=== PATIENT | female | born 1945 | race Caucasian/White ===

== ENCOUNTER 2016-12-17 19:00 | Inpatient (IN) | payer OTHER, MEDICARE ==
--- NOTE | ~2016-12-17 | DS ---
Discharge Summary [place] [id number] [facility] [place]. [address] NAME: RG PETTY : 43 STATUS : DIS IN PAT#: [id number] AGE: 71 ADM/REG DATE : 12/17/16 MR#: [id number] REPORT SERV DATE: 12/25/16 DICTATED BY: VÍCTOR STAHL DATE: 12/24/16 REPORT STATUS : Draft TRANSCRIBED BY: KIRA DATE: 12/24/16 ADMISSION DATE: 12/17/2016 DISCHARGE DATE: 12/24/2016 DIAGNOSES: 1. Sepsis. 2. Extended-spectrum beta-lactamases bacteremia. 3. Extended-spectrum beta-lactamases urinary tract infection. 4. Metabolic encephalopathy resolved secondary to above. 5. Chronic autoimmune hepatitis. 6. Oral thrush and skin candidiasis. 7. Debility. 8. Arthritis. CONSULTANTS: Test Engine Evaluator, Dr. Jairo Mistry M.D. FOLLOWUP: The patient is to follow up with Dr. Jovi Mistry in two weeks and to follow with the primary care physician in one to two weeks after rehab. The patient is to have a CMP to follow up with the LFTs while at rehab within seven days per Dr. Mistry's recommendations. DISCHARGE MEDICATIONS: Bumex 1 mg p.o. daily p.r.n., Voltaren gel topically q.6 hours to left shoulder p.r.n., level 2 subcutaneous sliding insulin, heparin 5000 units subcu q.12 hours for two weeks, melatonin 9 mg p.o. at bedtime, Merrem 500 mg IV q.8 hours for 6 days, Nystatin topical powder under breast four times a day for 2 weeks, Nystatin suspension 5 mL p.o. q.6 hours for 5 days, Nexium 40 mg p.o. q.a.m., Florastor 2 caps p.o. b.i.d., Zoloft 25 mg p.o. daily, thiamine 100 mg p.o. daily, ursodiol 500 mg p.o. b.i.d., prednisone 10 mg p.o. q.a.m., Imodium 2 mg p.o. q.6 hours p.r.n., albuterol neb q.4 hours p.r.n., CoQ10 of 100 mg p.o. daily, and vitamin E 400 units p.o. daily. HOSPITAL COURSE: This is a 71 years old female, recently diagnosed with autoimmune hepatitis, being followed by Dr. Jairo Mistry, who is currently on prednisone and recently started on CellCept. The patient was recently also discharged from the hospital in 10/2016, and for that diagnosis, she presented from Dr. Jairo Mistry's office, the deposit refund clerk, after being found to have an elevated white count of 28.5 and encephalopathy. Also the patient was recently started on Tamiflu as an outpatient for complaint of subjective fever, chills, and suspected influenza, although unsure if the influenza swab was ever checked at that time. She was admitted to the Hospitalist Service for sepsis and urinary tract infection and encephalopathy and initially seen by Dr. Hussain Lin with a consultation to Dr. Jairo Mistry, the deposit refund clerk, and the patient had a CT of the abdomen and pelvis without contrast that revealed a small volume of ascites and a small left pleural effusion with appearance of the liver, spleen, kidneys, pancreas, adrenal glands were within normal limits, and the patient did not require paracentesis due to not being enough ascites for paracentesis. She did initially have some abdominal discomfort which was more so suprapubic but resolved after initiation of antibiotics within 24 hours. Her liver numbers were checked and actually had some improvement with the T-bilirubin from 5.1 to 3.6, alkaline phosphatase had improved from 180-147 and ALT remained normal from 12-13. AST remained Discharge Summary [address] [address] NAME: RG PETTY : 43 STATUS : DIS IN PAT#: [id number] AGE: 71 ADM/REG DATE : 12/17/16 MR#: [id number] REPORT SERV DATE: 12/25/16 DICTATED BY: VÍCTOR STAHL DATE: 12/24/16 REPORT STATUS : Draft TRANSCRIBED BY: KIRA DATE: 12/24/16 normal from 14-30 but improvement overall of LFTs. INR was noted to be 1.5. The patient's prednisone was continued. Dr. Jairo Mistry wanted to initiate CellCept. However, the patient was found to have some ESBL bacteremia in all blood cultures as well as in the urine. Therefore, CellCept had to be withheld due to the patient's acute infection. Overall, clinical status improved dramatically with appropriate initiation with IV Merrem. Abdominal discomfort resolved at the time of discharge. The patient did not have any abdominal distention and was eating and drinking well. Also a curbside consultation and was sent to Infectious Disease specialist, Dr. Александр López, to discuss the length of the patient's antibiotic with recommendation of a full course of 10 days. Also was discussed about the safest time to initiate CellCept and was recommended to wait three weeks before initiating CellCept for the patient's autoimmune hepatitis due to high risk of worsening infection or recurrence of infection in this immunocompromised patient. The patient clinically was improved with improving LFTs at the time of discharge. This also was discussed with Dr. Jairo Mistry as well as the patient and family. Dr. Mistry recommended for the patient's LFTs to be checked in a week after discharge at rehab and to follow up with him as well as an outpatient in a couple of weeks. Also, important to note, the patient had an echocardiogram during her hospital stay that revealed an ejection fraction of 55% to 60% with mild diastolic dysfunction and no evidence of vegetation seen. The patient was discharged to [facility] and the PICC line is to be removed after completion of the patient's IV antibiotics. This discharge required greater than 35 minutes. ARIELLA/NIKIL Víctor Stahl M.D. / [id number] CC: Mai Ayers M.D.
--- NOTE | ~2016-12-17 | HP ---
History And Physical [place] [address] [facility] [place]. [address] NAME: RG PETTY : 43 STATUS : ADM IN PAT#: [id number] AGE: 71 ADM/REG DATE : 12/17/16 MR#: [id number] REPORT SERV DATE: 12/18/16 DICTATED BY: LAURA DUNCAN DATE: 12/17/16 REPORT STATUS : Draft TRANSCRIBED BY: MODL DATE: 12/17/16 DATE OF ADMISSION: 12/17/2016 REASON FOR ADMISSION: Elevated white count from Dr. Mistry's office. ZONING ENGINEER: Jairo Mistry M.D. HISTORY OF PRESENT ILLNESS: This is an unfortunate 71-year-old female. She had a recent liver biopsy that had shown fulminant acute hepatitis and massive hepatic necrosis. Given the elevated SUNNY titer, Pathology was leaning more toward autoimmune hepatitis plus or minus drug-induced hepatitis. The patient was recently discharged in late October to follow with Dr. Mistry on prednisone. The patient recently was kept on CellCept 500 p.o. b.i.d., reduced her prednisone from 20 a day to 10 a day. Ever since then, the patient has been increasingly more lethargic, true fever of 102, positive chills, positive nausea. No vomiting. Some occasional diarrhea and some mild pleuritic chest pain that does seem to reproduce upon musculoskeletal palpation, substernal and left sternal border. The patient has had some mild shortness of breath recently with shortness of breath and fevers and chills. The patient was placed on Tamiflu which seems to have been started on the . The patient felt minimally better since then. Apparently influenza was possibly not checked, I am not sure at that time per family. The patient came to see Dr. Mistry, white count was 28.5, requested admission here. The patient has increased abdominal distention, increased lower extremity swelling, some mild confusion, but she is A and O x4/4. The patient has not slept in quite a while. PAST MEDICAL HISTORY/PAST SURGICAL HISTORY: See above including cholecystectomy, bilateral knee surgery, and left breast lumpectomy. Additional history of gastric polyps, left breast cancer in 1999, status post surgical resection and radiation, and GERD. ALLERGIES: NO KNOWN DRUG ALLERGIES. SOCIAL HISTORY: Does not drink, do drugs, or do alcohol, nor has ever. , lives with , two children. Family does seem to be in the police force at [facility]. REVIEW OF SYSTEMS: Done, see HPI. Otherwise, negative. HOME MEDICATIONS: See MAR, continue what is relevant. OBJECTIVE: VITAL SIGN: 133/74, 98.2 temp, 106 pulse, 16 respirations, and 96% on room air. GENERAL: In no acute distress. HEENT: Some mild scleral icterus. Otherwise PERRLA. CARDIOVASCULAR: Regular rate and rhythm. No murmur. History And Physical [address] [address] NAME: RG PETTY : 43 STATUS : ADM IN PAT#: [id number] AGE: 71 ADM/REG DATE : 12/17/16 MR#: [id number] REPORT SERV DATE: 12/18/16 DICTATED BY: LAURA DUNCAN DATE: 12/17/16 REPORT STATUS : Draft TRANSCRIBED BY: MODL DATE: 12/17/16 RESPIRATORY: Bibasilar crackles, decreased breath sounds. Otherwise clear to auscultation. ABDOMEN: Does seem to be distended, some mild tenderness to palpation, more in the hypogastric region. No rebound tenderness. No peritoneal signs. EXTREMITIES: About 1+ pitting edema bilaterally. NEUROLOGIC: A and O x4/4 which seems a bit slow. Otherwise, she is GCS 15. PSYCHIATRIC: Unable to assess given neuro status is a bit slow. LABORATORY DATA: White count 28.5; hemoglobin 14.6; 119,000 platelets; 2.9 potassium; 29 bicarb; and 1.58 creatinine. BUN 30, 34 sugar, alkaline phosphatase 172, total bilirubin 4.7 and direct of which is 3.7, albumin 1.6. Urinalysis, 56 white blood cells, positive leukocyte esterase, troponins negative. ASSESSMENT: 1. Sepsis due to urinary tract infection with likely acute toxic encephalopathy. 2. Toxic encephalopathy. 3. Progressive fulminant liver disease, need to get an INR regarding the MELD. 4. Acute kidney injury versus chronic kidney disease. PLAN: We will go ahead and admit this patient, panculture, IV vancomycin and Zosyn given recent hospitalization in the last three months. Asked for Dr. Jairo Mistry in consultation regarding the MELD. Certainly needs to be resuscitated from a renal reperfusion standpoint with a D5 LR at 80. Get an ammonia level to see if this is contributing to any encephalopathy. If it is elevated, place on lactulose. Continue the prednisone, this cannot be quit cold turkey given adrenal insufficiency risk. Get CT of abdomen and pelvis without. If indeed does have [id number] ascites, will get abdominal paracentesis, will not draw out more than 5 L. Replace potassium at this time and hold the CellCept given the immunocompromising medications in the setting of sepsis. See the rest of my orders. All questions were answered, it took well over 60 minutes to do. Reference [employer]. WST/MODL Laura Duncan, / [id number] CC: Sacha Boyle M.D. Dr. Hunter
[2016-12-17 16:33] LABS: INTERNATIONAL NORMAL RATI 1.5 UNITS (-); PARTIAL THROMBO TIME 29.8 SEC (22.5-37.2); PROTIME (NOT ORD) 17.9 SEC (12.0-14.5)
[2016-12-17 16:34] LABS: BASOPHILS 0.1 %; BASOPHILS ABSOLUTE 0.03 10/3/uL (0.0-0.16); EOSINOPHILS 0 %; HEMOGLOBIN 14.6 g/dL (12.0-16.0); LYMPHOCYTES 3.8 %; LYMPHOCYTES ABSOLUTE 1.08 10/3/uL (0.67-4.30); MEAN CORPUS HGB CONC 35.6 g/dL (32.0-36.0); MEAN CORPUSCULAR VOLUME 92.8 fL (80-100); MEAN PLATELET VOLUME 11.8 fL (9.2-13.0); MONOCYTES 2.5 %; NEUTROPHILS 92.6 %; PLATELET COUNT 119 10/3/uL (150-400); RBC DISTRIBUTION WIDTH 15.5 % (12.0-16.0); RED CELL COUNT 4.42 10/6/uL (4.0-5.6); WHITE BLOOD CELLS 28.5 10/3/uL (4.5-10.5)
[2016-12-17 16:35] LABS: MANUAL DIFF NO %
[2016-12-17 16:36] LABS: IMMATURE GRANULOCYTES ABSOLUTE 0.28 10/3/uL (0.0-0.11)
[2016-12-17 16:40] LABS: ASCORBIC ACID (UR NOT ORDER) NEG (NEG); BILIRUBIN, URINE NEGATIVE (NEG); ER URINALYSIS TAT 0 Hrs 14 Mins; KETONE, URINE NEGATIVE (NEG); LEUKOCYTE ESTERASE(NOT OR MOD (NEG); NITRITE (URINE) NEG (NEG); WBC (NOT ORDERED) (RFLEX) 56 (0-5)
[2016-12-17 16:46] LABS: ALBUMIN 1.6 G/DL (3.5-5.0); CALCIUM, SERUM 7.6 MG/DL (8.5-10.4); CHEST PAIN PROFILE TAT 0 Hrs 29 Mins; CHLORIDE, SERUM 98 MMOL/L (96-112); CO2 (CARBON DIOXIDE) 29 MMOL/L (24-34); GLUCOSE, SERUM 134 MG/DL (60-99); SGOT(AST) 16 U/L (5-40); SGPT(ALT) 12 U/L (5-65); SODIUM, SERUM 137 MMOL/L (135-148); TOTAL PROTEIN 5.4 G/DL (6.0-8.5); TROPONIN I 0.02 NG/ML (<0.05)
[2016-12-17 16:51] LABS: ALKALINE PHOSPHATASE 173 U/L (45-117); BAND NEUTROPHILS 3 %; BUN (BLOOD UREA NITROGEN) 32 MG/DL (6-23); CREATININE 1.58 MG/DL (0.55-1.02); DIRECT BILIRUBIN 3.7 MG/DL (0.0-0.4); ER DIFF TAT 0 Hrs 34 Mins; GFR AFRICAN AMERICAN 37 ML/MIN (>=60); GFR NON AFRICAN AMERICAN 32 ML/MIN (>=60); LYMPHOCYTES 5 %; LYMPHOCYTES ABSOLUTE (CALC) 1.43 10/3/uL (0.67-4.30); MONOCYTES 4 %; MONOCYTES ABSOLUTE (CALC) 1.14 10/3/uL (0.21-1.20); NEUTROPHILS ABSOLUTE (CALC) 25.94 10/3/uL (2.02-8.40); PLATELET ESTIMATE SLT DEC (ADEQUATE); POTASSIUM, SERUM 2.9 MMOL/L (3.5-5.3); SEGMENTED NEUTROPHIL (0) 88 %; TOTAL BILIRUBIN 4.7 MG/DL (0-1.2); TOTAL NUCLEATED CELLS 100
[2016-12-17 16:52] LABS: ACANTHOCYTES OCC (0-2/OIF); BURR CELLS 1+ (3-10/OIF) (0-2/OIF); VACUOLATED NEUTROPHILES FEW
[2016-12-17 16:53] LABS: LACTATE 2.6 MMOL/L (0.3-2.4)
[~2016-12-17 19:00] MED LIST: ADVIL PO; ANTIBIOTIC RX PO; CELLCEPT2 PO; CELLCEPT5 PO; CO Q-10 PO; CYMBALTA60 PO; DSS PO; FEMARA PO; HEMOCYTET PO; MIRAPEX0.75 MG PO; NEXIUM40 PO; P20 PO; PRILO PO; PRILOSEC OTC20 MG PO; PRISTIQ50 MG PO; TAMIFLU PO; URSO FORTE500 MG PO; URSO250 PO; VITE PO; ZOL50 PO; ZOLOFT25 MG PO
[2016-12-17 19:53] LABS: PROCALCITONIN 4.06 ng/mL (<0.5)
[2016-12-17 23:39] LABS: B NATRIURETIC PEPTIDE (BNP) 73.5 PG/ML (< 100.0)
[2016-12-17 23:42] LABS: LACTATE 3.2 MMOL/L (0.3-2.4)
[2016-12-17 23:49] LABS: A/G RATIO 0.3 (0.7-1.9); ALBUMIN 1.5 G/DL (3.5-5.0); ALKALINE PHOSPHATASE 180 U/L (45-117); BUN (BLOOD UREA NITROGEN) 32 MG/DL (6-23); CALCIUM, SERUM 7.7 MG/DL (8.5-10.4); CHLORIDE, SERUM 100 MMOL/L (96-112); CO2 (CARBON DIOXIDE) 26 MMOL/L (24-34); CPK 45 U/L (0-200); CREATININE 1.65 MG/DL (0.55-1.02); GFR AFRICAN AMERICAN 35 ML/MIN (>=60); GFR NON AFRICAN AMERICAN 30 ML/MIN (>=60); GLOBULIN 4.4 G/DL (2.5-4.1); SGPT(ALT) 16 U/L (5-65); SODIUM, SERUM 138 MMOL/L (135-148); TOTAL BILIRUBIN 5.1 MG/DL (0-1.2); TOTAL PROTEIN 5.9 G/DL (6.0-8.5); TROPONIN I <0.02 NG/ML (<0.05)
[2016-12-17 23:50] LABS: CK-MB < 0.5 NG/ML; GLUCOSE, SERUM 104 MG/DL (60-99); POTASSIUM, SERUM 4.5 MMOL/L (3.5-5.3); SGOT(AST) 30 U/L (5-40)
[2016-12-18 01:40] LABS: ALPHA FETOPROTEIN (TUMOR) 3.4 NG/ML (< 8.0)
[2016-12-18 06:52] LABS: HEMATOCRIT 37.1 % (36.0-48.0); HEMOGLOBIN 13.1 g/dL (12.0-16.0); MEAN CORPUS HGB CONC 35.3 g/dL (32.0-36.0); MEAN CORPUSCULAR HEMOGLOB 32.9 pg (26.0-34.0); MEAN CORPUSCULAR VOLUME 93.2 fL (80-100); PLATELET COUNT 109 10/3/uL (150-400); RBC DISTRIBUTION WIDTH 15.7 % (12.0-16.0); RED CELL COUNT 3.98 10/6/uL (4.0-5.6)
[2016-12-18 06:55] LABS: MANUAL DIFF YES %; WHITE BLOOD CELLS 30.7 10/3/uL (4.5-10.5)
[2016-12-18 07:08] LABS: LACTATE 1.8 MMOL/L (0.3-2.4)
[2016-12-18 07:12] LABS: BUN (BLOOD UREA NITROGEN) 32 MG/DL (6-23); CALCIUM, SERUM 7.3 MG/DL (8.5-10.4); CHLORIDE, SERUM 105 MMOL/L (96-112); CK-MB 0.8 NG/ML; CO2 (CARBON DIOXIDE) 23 MMOL/L (24-34); CPK 14 U/L (0-200); CREATININE 1.59 MG/DL (0.55-1.02); GFR AFRICAN AMERICAN 37 ML/MIN (>=60); GFR NON AFRICAN AMERICAN 32 ML/MIN (>=60); GLUCOSE, SERUM 124 MG/DL (60-99); PHOSPHORUS, SERUM 3.2 MG/DL (2.5-4.5); POTASSIUM, SERUM 3.9 MMOL/L (3.5-5.3); SODIUM, SERUM 139 MMOL/L (135-148); TROPONIN I 0.02 NG/ML (<0.05)
[2016-12-18 07:33] LABS: BAND NEUTROPHILS 3 %; LYMPHOCYTES 1 %; LYMPHOCYTES ABSOLUTE (CALC) 0.31 10/3/uL (0.67-4.30); MONOCYTES 3 %; MONOCYTES ABSOLUTE (CALC) 0.92 10/3/uL (0.21-1.20); NEUTROPHILS ABSOLUTE (CALC) 29.47 10/3/uL (2.02-8.40); PLATELET ESTIMATE SLT DEC (ADEQUATE); RBC MORPHOLOGY NORM (NORMAL); SEGMENTED NEUTROPHIL (0) 93 %; TOTAL NUCLEATED CELLS 100; TOXIC GRANULATION 1+
[2016-12-18 07:47] LABS: GLYCOHEMOGLOBIN (HbA1c) 5.2 % (4.7-6.1)
[2016-12-18 17:04] LABS: INFLUENZA A SCREEN NEGATIVE (NEGATIVE); INFLUENZA B SCREEN NEGATIVE (NEGATIVE)
[2016-12-19 05:35] LABS: HEMATOCRIT 37.5 % (36.0-48.0); HEMOGLOBIN 12.7 g/dL (12.0-16.0); MEAN CORPUS HGB CONC 33.9 g/dL (32.0-36.0); MEAN CORPUSCULAR HEMOGLOB 32.4 pg (26.0-34.0); MEAN CORPUSCULAR VOLUME 95.7 fL (80-100); MEAN PLATELET VOLUME 10.8 fL (9.2-13.0); PLATELET COUNT 108 10/3/uL (150-400); RBC DISTRIBUTION WIDTH 16.2 % (12.0-16.0); RED CELL COUNT 3.92 10/6/uL (4.0-5.6); WHITE BLOOD CELLS 23.9 10/3/uL (4.5-10.5)
[2016-12-19 05:36] LABS: MANUAL DIFF YES %
[2016-12-19 05:58] LABS: A/G RATIO 0.3 (0.7-1.9); ALBUMIN 1.2 G/DL (3.5-5.0); CALCIUM, SERUM 7.8 MG/DL (8.5-10.4); CHLORIDE, SERUM 108 MMOL/L (96-112); CO2 (CARBON DIOXIDE) 23 MMOL/L (24-34); CREATININE 1.69 MG/DL (0.55-1.02); GFR AFRICAN AMERICAN 34 ML/MIN (>=60); GFR NON AFRICAN AMERICAN 30 ML/MIN (>=60); GLOBULIN 3.8 G/DL (2.5-4.1); GLUCOSE, SERUM 116 MG/DL (60-99); PHOSPHORUS, SERUM 3.6 MG/DL (2.5-4.5); POTASSIUM, SERUM 3.7 MMOL/L (3.5-5.3); SGOT(AST) 14 U/L (5-40); SGPT(ALT) 13 U/L (5-65); SODIUM, SERUM 141 MMOL/L (135-148)
[2016-12-19 06:02] LABS: ALKALINE PHOSPHATASE 147 U/L (45-117); BUN (BLOOD UREA NITROGEN) 36 MG/DL (6-23); TOTAL BILIRUBIN 3.6 MG/DL (0-1.2)
[2016-12-19 06:53] LABS: BAND NEUTROPHILS 2 %; BURR CELLS 1+ (3-10/OIF) (0-2/OIF); IMMATURE GRANS ABSOLUTE (CALC) 0.24 10/3/uL (0.0-0.11); LYMPHOCYTES 6 %; LYMPHOCYTES ABSOLUTE (CALC) 1.43 10/3/uL (0.67-4.30); METAMYELOCYTES 1 %; NEUTROPHILS ABSOLUTE (CALC) 22.23 10/3/uL (2.02-8.40); PLATELET ESTIMATE SLT DEC (ADEQUATE); POIKILOCYTOSIS 1+ (5-10/OIF) (0-5/OIF); SEGMENTED NEUTROPHIL (0) 91 %; TOTAL NUCLEATED CELLS 100; TOXIC GRANULATION 1+
[2016-12-20 07:13] LABS: BASOPHILS 0.1 %; BASOPHILS ABSOLUTE 0.02 10/3/uL (0.0-0.16); EOSINOPHILS 0.4 %; EOSINOPHILS ABSOLUTE 0.08 10/3/uL (0.0-0.53); HEMATOCRIT 39.5 % (36.0-48.0); HEMOGLOBIN 13.2 g/dL (12.0-16.0); IMMATURE GRANULOCYTES 1.3 %; IMMATURE GRANULOCYTES ABSOLUTE 0.28 10/3/uL (0.0-0.11); LYMPHOCYTES 11.8 %; LYMPHOCYTES ABSOLUTE 2.55 10/3/uL (0.67-4.30); MEAN CORPUS HGB CONC 33.4 g/dL (32.0-36.0); MEAN CORPUSCULAR HEMOGLOB 32.2 pg (26.0-34.0); MEAN CORPUSCULAR VOLUME 96.3 fL (80-100); MEAN PLATELET VOLUME 10.6 fL (9.2-13.0); MONOCYTES 3.3 %; MONOCYTES ABSOLUTE 0.72 10/3/uL (0.21-1.20); NEUTROPHILS 83.1 %; NEUTROPHILS ABSOLUTE 18.05 10/3/uL (2.02-8.40); PLATELET COUNT 119 10/3/uL (150-400); RBC DISTRIBUTION WIDTH 16.2 % (12.0-16.0); WHITE BLOOD CELLS 21.7 10/3/uL (4.5-10.5)
[2016-12-20 07:15] LABS: MANUAL DIFF NO %
[2016-12-20 07:23] LABS: BUN (BLOOD UREA NITROGEN) 35 MG/DL (6-23); CALCIUM, SERUM 7.8 MG/DL (8.5-10.4); CHLORIDE, SERUM 103 MMOL/L (96-112); CO2 (CARBON DIOXIDE) 24 MMOL/L (24-34); CREATININE 1.73 MG/DL (0.55-1.02); GFR AFRICAN AMERICAN 33 ML/MIN (>=60); GFR NON AFRICAN AMERICAN 29 ML/MIN (>=60); GLUCOSE, SERUM 110 MG/DL (60-99); PHOSPHORUS, SERUM 3.5 MG/DL (2.5-4.5); POTASSIUM, SERUM 3.8 MMOL/L (3.5-5.3); SODIUM, SERUM 139 MMOL/L (135-148)
[2016-12-21 15:30] LABS: BASOPHILS 0.1 %; BASOPHILS ABSOLUTE 0.01 10/3/uL (0.0-0.16); EOSINOPHILS 0.1 %; EOSINOPHILS ABSOLUTE 0.02 10/3/uL (0.0-0.53); HEMATOCRIT 37.4 % (36.0-48.0); HEMOGLOBIN 12.7 g/dL (12.0-16.0); IMMATURE GRANULOCYTES 2.1 %; IMMATURE GRANULOCYTES ABSOLUTE 0.41 10/3/uL (0.0-0.11); LYMPHOCYTES 5.6 %; LYMPHOCYTES ABSOLUTE 1.08 10/3/uL (0.67-4.30); MEAN CORPUSCULAR HEMOGLOB 32.6 pg (26.0-34.0); MEAN CORPUSCULAR VOLUME 95.9 fL (80-100); MONOCYTES 4.1 %; MONOCYTES ABSOLUTE 0.78 10/3/uL (0.21-1.20); PLATELET COUNT 130 10/3/uL (150-400); RBC DISTRIBUTION WIDTH 15.8 % (12.0-16.0); WHITE BLOOD CELLS 19.2 10/3/uL (4.5-10.5)
[2016-12-21 15:32] LABS: MANUAL DIFF NO %
[2016-12-21 15:39] LABS: BUN (BLOOD UREA NITROGEN) 37 MG/DL (6-23); CALCIUM, SERUM 7.4 MG/DL (8.5-10.4); CHLORIDE, SERUM 101 MMOL/L (96-112); CO2 (CARBON DIOXIDE) 26 MMOL/L (24-34); CREATININE 1.74 MG/DL (0.55-1.02); GFR AFRICAN AMERICAN 33 ML/MIN (>=60); GFR NON AFRICAN AMERICAN 29 ML/MIN (>=60); PHOSPHORUS, SERUM 2.6 MG/DL (2.5-4.5); SODIUM, SERUM 137 MMOL/L (135-148)
[2016-12-21 15:40] LABS: GLUCOSE, SERUM 145 MG/DL (60-99)
[2016-12-21 23:20] LABS: ASCORBIC ACID (UR NOT ORDER) NEG (NEG); BILIRUBIN, URINE NEGATIVE (NEG); KETONE, URINE NEGATIVE (NEG); LEUKOCYTE ESTERASE(NOT OR MOD (NEG); WBC (NOT ORDERED) (RFLEX) 25 (0-5)
[2016-12-22 07:05] LABS: BASOPHILS 0.1 %; BASOPHILS ABSOLUTE 0.01 10/3/uL (0.0-0.16); EOSINOPHILS 0.4 %; EOSINOPHILS ABSOLUTE 0.05 10/3/uL (0.0-0.53); IMMATURE GRANULOCYTES 2.2 %; IMMATURE GRANULOCYTES ABSOLUTE 0.28 10/3/uL (0.0-0.11); LYMPHOCYTES 13.7 %; LYMPHOCYTES ABSOLUTE 1.77 10/3/uL (0.67-4.30); MEAN CORPUS HGB CONC 33.5 g/dL (32.0-36.0); MEAN CORPUSCULAR HEMOGLOB 32.4 pg (26.0-34.0); MEAN CORPUSCULAR VOLUME 96.8 fL (80-100); MEAN PLATELET VOLUME 10.2 fL (9.2-13.0); MONOCYTES 4.6 %; PLATELET COUNT 103 10/3/uL (150-400); WHITE BLOOD CELLS 12.9 10/3/uL (4.5-10.5)
[2016-12-22 07:21] LABS: HEMATOCRIT 26.9 % (36.0-48.0); RED CELL COUNT 2.78 10/6/uL (4.0-5.6)
[2016-12-22 07:22] LABS: MANUAL DIFF NO %
[2016-12-22 07:41] LABS: BUN (BLOOD UREA NITROGEN) 30 MG/DL (6-23); CALCIUM, SERUM 7.3 MG/DL (8.5-10.4); CHLORIDE, SERUM 106 MMOL/L (96-112); CO2 (CARBON DIOXIDE) 24 MMOL/L (24-34); CREATININE 1.48 MG/DL (0.55-1.02); GFR AFRICAN AMERICAN 40 ML/MIN (>=60); GFR NON AFRICAN AMERICAN 35 ML/MIN (>=60); GLUCOSE, SERUM 105 MG/DL (60-99); PHOSPHORUS, SERUM 2.6 MG/DL (2.5-4.5); POTASSIUM, SERUM 3.5 MMOL/L (3.5-5.3); SODIUM, SERUM 139 MMOL/L (135-148)
[2016-12-24 06:07] LABS: BUN (BLOOD UREA NITROGEN) 28 MG/DL (6-23); CALCIUM, SERUM 7.6 MG/DL (8.5-10.4); CHLORIDE, SERUM 106 MMOL/L (96-112); CO2 (CARBON DIOXIDE) 26 MMOL/L (24-34); CREATININE 1.31 MG/DL (0.55-1.02); GFR AFRICAN AMERICAN 47 ML/MIN (>=60); GFR NON AFRICAN AMERICAN 40 ML/MIN (>=60); GLUCOSE, SERUM 121 MG/DL (60-99); POTASSIUM, SERUM 3.2 MMOL/L (3.5-5.3); SODIUM, SERUM 141 MMOL/L (135-148)
== END 2016-12-24 14:02 | DRG 871 ==
LOC: ER 19:00 → 5NO 19:51
PROVIDERS: Emergency Medicine; Internal Medicine
PROC: 02HV33Z Insertion of Infusion Device into Superior Vena Cava, Percutaneous Approach (ICD-10-PCS; principal; 2016-12-21)
PROC: 4A02X4A Measurement of Cardiac Electrical Activity, Guidance, External Approach (ICD-10-PCS; 2016-12-21)
DX: A41.51 Sepsis due to Escherichia coli [E. coli] (principal); G93.41 Metabolic encephalopathy; N17.9 Acute kidney failure, unspecified; N39.0 Urinary tract infection, site not specified; B37.0 Candidal stomatitis; K75.4 Autoimmune hepatitis; M19.012 Primary osteoarthritis, left shoulder
CPT/HCPCS: 70450; 71010; 73020-LT; 74176; 80048; 80053; 80076; 81001; 82105; 82140; 82550; 82553; 82962; 83036; 83605; 83735; 83880; 84100; 84145; 84443; 84484; 85025; 85610; 85730; 87040; 87077; 87086; 87150; 87184; 87186; 87449; 87493; 87493-59; 87804; 93005; 93308; 93321; 93325; 94640; 96365; 96375; 97110-GP; 97116-GP; 97162-GP; 97166-GO; 99285; A9270-GY; J1170; J2185; J2405; J2543; J3260; J3370

== ENCOUNTER 2017-03-18 15:58 | Inpatient (IN) | payer OTHER, MEDICARE ==
--- NOTE | ~2017-03-18 | OP ---
Record Of Operation [facility] [address] [place]. [address] NAME: RG PETTY : 43 STATUS : ADM IN PAT#: [id number] AGE: 72 ADM/REG DATE : 03/18/17 MR#: [id number] REPORT SERV DATE: 03/21/17 DICTATED BY: NORY SHAW DATE: 03/21/17 REPORT STATUS : Draft TRANSCRIBED BY: MODL DATE: 03/21/17 DATE OF PROCEDURE: 03/19/2017 PREOPERATIVE DIAGNOSIS: Left knee sepsis. POSTOPERATIVE DIAGNOSIS: Left knee sepsis. PROCEDURE: Left knee I and D liner exchange and bead placement. INDICATIONS: 72 old female, who had previous bilateral total knee arthroplasty and done well for quite some time. She had a recent episode of urosepsis and subsequent infection of her left knee. This was proven with aspirate over 50,000 white cells. She was indicated for the above procedure. DESCRIPTION OF PROCEDURE: The patient was taken to the operating room and placed in supine on the table in normal fashion without incident. General anesthetic was induced per the anesthesiologist. The patient was carefully positioned, padded, prepped, and draped in normal sterile fashion. The left lower extremity was held elevated. Tourniquet inflated to 350. Sharp dissection was made through the old incision with electrocautery through the fat. Sharp quad splitting approach was carried out. Medial arthrotomy was made. Gross purulence was sent for cultures and Gram stain. Synovectomy was performed. Examination of the components, there were all felt to be intact with good bone cement prosthesis interfaces. All surfaces were copiously irrigated with pulsatile lavage, after removing the tibial insert and doing a synovectomy with a completely re-draped and re-gowned with a new setup. Irrigated with three more liters of pulsatile lavage. The liner was placed and impacted. The knee was closed in layered fashion after placing beads. There were antibiotic containing and absorbable throughout the knee. The wound was dressed sterilely. The patient was awakened and taken to the postanesthesia care unit without incident. COMPLICATIONS: None. SPECIMENS REMOVED: Component and cultures. ESTIMATED BLOOD LOSS: Trace. WTB/MODL Rupal Shaw M.D. / [id number] CC: Rupal Shaw M.D. Record Of Operation [address] [address] NAME: RG PETTY : 43 STATUS : ADM IN PAT#: [id number] AGE: 72 ADM/REG DATE : 03/18/17 MR#: [id number] REPORT SERV DATE: 03/21/17 DICTATED BY: NORY SHAW DATE: 03/21/17 REPORT STATUS : Draft TRANSCRIBED BY: MODL DATE: 03/21/17 SULAIMAN MCKEON
--- NOTE | ~2017-03-18 | CN ---
Consultation Report [facility] [address] [place]. [address] NAME: RG CONNOLLY : 43 STATUS : ADM IN PAT#: [id number] AGE: 72 ADM/REG DATE : 03/18/17 MR#: [id number] REPORT SERV DATE: 03/20/17 DICTATED BY: JOVANNYBILLIE XIN DATE: 03/20/17 REPORT STATUS : Draft TRANSCRIBED BY: MODL DATE: 03/20/17 INFECTIOUS DISEASE CONSULTATION DATE OF CONSULTATION: 03/20/2017 REASON FOR CONSULTATION: Septic total knee arthroplasty. HISTORY OF PRESENT ILLNESS: This is a 72-year-old female with a past medical history notable for bilateral total knee arthroplasties in 2013 and a diagnosis of autoimmune hepatitis made in October in the setting of acute hepatitis, which led to a liver biopsy. She has been on immunosuppressive therapy for that under the direction of Dr. Jairo Mistry. She the patient was in the hospital from December 17 through December 24 with ESBL E coli UTI with positive blood cultures and she received a total of 10 days of meropenem therapy[facility] The patient states that about four-five weeks ago or so, she started getting pain in her left knee, which became progressively more severe. She denies any fevers, chills, or sweats. The patient was seen by Dr. Stein in the office on March 18 and arthrocentesis was performed, which revealed 59,450 white blood cells and 96% neutrophils. The patient was admitted to the hospital yesterday and underwent I and D with liner exchange and placement of antibiotic beads. She was placed on Ancef. Culture from the arthrocentesis has growth in the broth of a gram-negative wendy, a lactose boiling off winder. Culture and Gram stain from yesterday's surgery were negative to date. The patient denies any other infection issues since her admission in December for the UTI. The patient states that her CellCept therapy dose has been adjusted and she may have recently been on some steroids. Her outpatient medication list indicates that she has been on CellCept 500 mg p.o. twice a day, but was not on the steroids at the time of admission. PAST MEDICAL HISTORY: In addition to the above, is notable for gastric polyps, left breast cancer in 2007 status post surgical resection and radiation therapy, gastroesophageal reflux, cholecystectomy. ALLERGIES: NO KNOWN DRUG ALLERGIES. MEDICATIONS: Present medications in the hospital include Colace, Pepcid, iron, multivitamins, Coumadin, and CellCept along with ursodiol. SOCIAL HISTORY: She lives with her , he still works from 6 a.m. to 2 p.m. Nonsmoker and nondrinker. 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 FAMILY HISTORY: Notable for mother with stroke and a history of breast cancer. REVIEW OF SYSTEMS: No chest pain, shortness of breath, nausea, vomiting, or diarrhea, recent bleeding or bruising, genitourinary symptoms or UTI symptoms. The rest of the 10-point review of systems is also negative. Consultation Report [place] [address] [place]. [address] NAME: JUDY CONNOLLYH JANETT : 43 STATUS : ADM IN [facility]#: [id number] AGE: 72 ADM/REG DATE : 03/18/17 MR#: [id number] REPORT SERV DATE: 03/20/17 DICTATED BY: BILLIE CONNOLLY DATE: 03/20/17 REPORT STATUS : Draft TRANSCRIBED BY: KIRA DATE: 03/20/17 PHYSICAL EXAMINATION: VITAL SIGNS: The patient weighs 82 kg. The patient is afebrile, blood pressure 120/63, pulse 93, respiratory rate 14. On admission, respiratory rate was 22 and pulse was 99. GENERAL: She is alert and in no acute distress. HEAD AND NECK: Extraocular movements are intact. Oral cavity is clear. LUNGS: Clear to auscultation. CARDIAC: Regular rate and rhythm, without murmur, gallop, or rub. ABDOMEN: Soft and nontender. Bowel sounds are present. EXTREMITIES: The left knee has a postoperative dressing. The right knee has a compression stocking over it. She has a peripheral IV in her arm without phlebitis. SKIN: Shows some erythema of the upper chest, but no rash otherwise. EXTREMITIES: Without significant edema. LABORATORY STUDIES: White blood cell count 10.4, hemoglobin 12.8, platelets 221. Creatinine 1.08. Albumin 2.8. Liver function tests normal. Microbiology studies as noted. Chest x- ray is negative. IMPRESSION: Septic left total knee arthroplasty in a patient with a history of ESBL E coli septicemia in December, who also is on immunosuppressive therapy for chronic autoimmune hepatitis. I suspect the pathogen here is the same E coli that she had in December and there is growth of a gram-negative wendy from the arthrocentesis culture. PLAN: 1. We will begin meropenem pending final culture results. 2. She will need 6 weeks of IV antibiotic therapy. Unfortunately, if this is the same E coli, there are no oral antibiotic options for chronic suppressive therapy. 3. I discussed with the patient the possibility that this infection could persist or relapse despite the surgical therapy she had yesterday and the long course of IV antibiotics and she could eventually require a hardware removal. 4. We will discuss with Dr. Jairo Mistry regarding trying to make sure she is on the minimum effective immunosuppressive dose for her autoimmune hepatitis. MONIKA/KIRA Billie Connolly M.D. / [id number] CC: Mai Tellez LAURIE Consultation Report [address] [address] NAME: JOVANNYRG JANETT : 43 STATUS : ADM IN PAT#: [id number] AGE: 72 ADM/REG DATE : 03/18/17 MR#: [id number] REPORT SERV DATE: 03/20/17 DICTATED BY: BILLIE CONNOLLY DATE: 03/20/17 REPORT STATUS : Draft TRANSCRIBED BY: MODL DATE: 03/20/17 Jairo Mistry M.D.
--- NOTE | ~2017-03-18 | DS ---
Discharge Summary [facility] [address] [place]. [address] NAME: RG CONNOLLY : 43 STATUS : DIS IN PAT#: [id number] AGE: 72 ADM/REG DATE : 03/18/17 MR#: [id number] REPORT SERV DATE: 04/03/17 DICTATED BY: NORY SHAW DATE: 04/02/17 REPORT STATUS : Draft TRANSCRIBED BY: KIRA DATE: 04/02/17 Data Collection from hospitalization DISCHARGE DIAGNOSIS(ES): 1. Left knee sepsis. 2. History of hepatitis C. 3. Cirrhosis. 4. History of left breast cancer. 5. Obesity. 6. Peripheral vascular disease. 7. Gastroesophageal reflux disease. CONSULTATIONS: Raoul Connolly M.D. PROCEDURES PERFORMED: Left knee incision and drainage, liner exchange, and bead placement 03/19/2017. PATHOLOGY: Soft tissue left knee-benign fibromembranous soft tissue and synovium with moderate synovial hyperplasia. Focal acute and chronic inflammation and reactive changes and granulation tissue and fibrinous material. Orthopedic hardware-see gross description. MEDICATIONS: 1. Rocephin 2 g IM every 24 hours as instructed. 2. CoQ10 100 mg daily. 3. Nexium 40 mg daily. 4. Bidwell 7.5/325 one to two tablets every to six hours as needed. 5. Multivitamins one tablet daily. 6. CellCept 500 mg twice a day. 7. Vitamin E 400 units daily. 8. Brenda Forte 500 mg twice a day. 9. Jantoven as instructed. CONDITION AT DISCHARGE: Stable. DISPOSITION: The patient was discharged on a regular diet with activities as instructed. She will follow up with Dr. Raoul Connolly on 04/16/2017. She will follow up with Dr. Arianna Hunter on 03/29/2017. She will follow up with mi on 04/04/2017. Lab draws will be performed at the [facility] 03/26/2017. HOSPITAL COURSE: This is a 72-year-old female who has left knee sepsis. She has undergone bilateral total knee arthroplasty in January of 2014. She said that her left knee has hurt for the past four to five weeks. There had been no fall or injury. The right knee was doing good. Treatment options were discussed, and it was elected to proceed with surgical intervention. She was admitted to the hospital at this time for further evaluation and treatment. Upon admission, she was taken to the operating room where she underwent the above-mentioned procedure. She tolerated this well, and there were no complications. On postop day one, Discharge Summary [facility] [address] [place]. [address] NAME: RG CONNOLLY : 43 STATUS : DIS IN PAT#: [id number] AGE: 72 ADM/REG DATE : 03/18/17 MR#: [id number] REPORT SERV DATE: 04/03/17 DICTATED BY: NORY SHAW DATE: 04/02/17 REPORT STATUS : Draft TRANSCRIBED BY: KIRA DATE: 04/02/17 she was seen by Dr. Raoul Connolly regarding septic total knee arthroplasty. She was then placed on Ancef. Culture from the arthrocentesis had growth in the broth of gram-negative rods-a lactose puppet developer. Culture and Gram stain from surgery were negative to-date. The patient said that her CellCept therapy dose had been adjusted and that she may have recently been on some steroids. She was not on steroids at the time of admission. His impression included septic left total knee arthroplasty in a patient with a history of ESBL E. coli septicemia in December who was also on immunosuppressive therapy for chronic autoimmune hepatitis. It was suspected that the pathogen here was the same E. coli that she had in December, and there was growth of a gram-negative wendy from arthrocentesis culture. Meropenem was going to begin pending final culture results. It was felt she would need six weeks of IV antibiotic therapy. Unfortunately if this was the same E. coli, there were no oral antibiotic options for chronic suppressive therapy. The possibility that this infection could persist or relapse despite the surgical therapy she had and the long course of IV antibiotics that she may eventually require hardware removal. He was going to discuss with Dr. Jairo Mistry regarding trying to make sure the patient is on the minimum effective immunosuppressive dose for her autoimmune hepatitis. Occupational Therapy evaluated the patient. On the , her T-max was 99.5. Operative culture was negative to-date. She did have some pain in the knee. Her E. coli was different than the ESBL she had in December. She was going to be treated with six weeks of ceftriaxone, then oral suppressive therapy. Discharge planning was performed. She was comfortable. A PICC line was inserted. On 03/22/2017, she was afebrile. She had no new complaints. She said her pain was not bad. She had no GI symptoms. Discharge instructions were given. Due to her improved and stable condition, she was discharged home to be followed by home health care with the above-stated instructions. Information collected by: Tejal Rodriguez I submit the above information as my discharge summary. EHNRI/KIRA Rupal Shaw M.D. / [id number] CC: Mai Tellez FNP Hal Hill, M.D.
[2017-03-18 17:08] LABS: BASOPHILS 0.5 %; BASOPHILS ABSOLUTE 0.05 10/3/uL (0.0-0.16); EOSINOPHILS 0.6 %; EOSINOPHILS ABSOLUTE 0.06 10/3/uL (0.0-0.53); HEMATOCRIT 38.7 % (36.0-48.0); HEMOGLOBIN 12.8 g/dL (12.0-16.0); IMMATURE GRANULOCYTES 0.2 %; IMMATURE GRANULOCYTES ABSOLUTE 0.02 10/3/uL (0.0-0.11); LYMPHOCYTES 31.4 %; LYMPHOCYTES ABSOLUTE 3.28 10/3/uL (0.67-4.30); MANUAL DIFF NO %; MEAN CORPUS HGB CONC 33.1 g/dL (32.0-36.0); MEAN CORPUSCULAR HEMOGLOB 28.6 pg (26.0-34.0); MEAN CORPUSCULAR VOLUME 86.4 fL (80-100); MEAN PLATELET VOLUME 9.6 fL (9.2-13.0); MONOCYTES 8.5 %; MONOCYTES ABSOLUTE 0.89 10/3/uL (0.21-1.20); NEUTROPHILS 58.8 %; NEUTROPHILS ABSOLUTE 6.13 10/3/uL (2.02-8.40); PLATELET COUNT 221 10/3/uL (150-400); RBC DISTRIBUTION WIDTH 13.4 % (12.0-16.0); RED CELL COUNT 4.48 10/6/uL (4.0-5.6); WHITE BLOOD CELLS 10.4 10/3/uL (4.5-10.5)
[2017-03-18 17:22] LABS: CHLORIDE, SERUM 106 MMOL/L (96-112); CO2 (CARBON DIOXIDE) 25 MMOL/L (24-34); CREATININE 1.08 MG/DL (0.55-1.02); GFR AFRICAN AMERICAN 59 ML/MIN (>=60); GFR NON AFRICAN AMERICAN 51 ML/MIN (>=60); POTASSIUM, SERUM 3.7 MMOL/L (3.5-5.3); SGOT(AST) 27 U/L (5-40); SGPT(ALT) 16 U/L (5-65); SODIUM, SERUM 137 MMOL/L (135-148)
[2017-03-18 17:24] LABS: A/G RATIO 0.7 (0.7-1.9); ALBUMIN 2.8 G/DL (3.5-5.0); ALKALINE PHOSPHATASE 116 U/L (45-117); BUN (BLOOD UREA NITROGEN) 12 MG/DL (6-23); GLOBULIN 4.2 G/DL (2.5-4.1); GLUCOSE, SERUM 93 MG/DL (60-99); TOTAL BILIRUBIN 0.6 MG/DL (0-1.2)
[2017-03-18 17:32] LABS: INTERNATIONAL NORMAL RATI 1.1 UNITS (-)
[2017-03-18 17:35] LABS: PROTIME (NOT ORD) 14.1 SEC (12.0-14.5)
[2017-03-18] MEDS ORDERED: NEXIUM40 PO (21:29)
[2017-03-18] MEDS ORDERED: CELLCEPT5 PO (21:29)
[2017-03-18] MEDS ORDERED: VITE PO (21:30)
[2017-03-18] MEDS ORDERED: URSO FORTE500 MG PO (21:30)
[2017-03-18] MEDS ORDERED: CO Q-10100 MG PO (21:30)
[2017-03-20 11:34] LABS: HEMATOCRIT 38.3 % (36.0-48.0); HEMOGLOBIN 12.5 g/dL (12.0-16.0)
[2017-03-20 11:43] LABS: CALCIUM, SERUM 9.3 MG/DL (8.5-10.4); CHLORIDE, SERUM 107 MMOL/L (96-112); CO2 (CARBON DIOXIDE) 23 MMOL/L (24-34); GFR AFRICAN AMERICAN 52 ML/MIN (>=60); GFR NON AFRICAN AMERICAN 44 ML/MIN (>=60); INTERNATIONAL NORMAL RATI 1.2 UNITS (-); PROTIME (NOT ORD) 15.1 SEC (12.0-14.5); SODIUM, SERUM 140 MMOL/L (135-148)
[2017-03-20 11:44] LABS: BUN (BLOOD UREA NITROGEN) 16 MG/DL (6-23); GLUCOSE, SERUM 129 MG/DL (60-99)
[2017-03-21 05:57] LABS: PROTIME (NOT ORD) 22.5 SEC (12.0-14.5)
[2017-03-21 06:07] LABS: HEMATOCRIT 36.2 % (36.0-48.0); HEMOGLOBIN 11.7 g/dL (12.0-16.0)
[2017-03-22 10:41] LABS: HEMATOCRIT 36.5 % (36.0-48.0); HEMOGLOBIN 12.1 g/dL (12.0-16.0)
[2017-03-22 10:46] LABS: INTERNATIONAL NORMAL RATI 3.7 UNITS (-)
[2017-03-22 10:48] LABS: PROTIME (NOT ORD) 36.5 SEC (12.0-14.5)
[2017-03-22] MEDS ORDERED: ROCEPHIN2 G2 IM (16:21)
[2017-03-22] MEDS ORDERED: MULTIVITAMI1 PO (16:22)
[2017-03-22] MEDS ORDERED: JANTOVEN2 MG (16:23)
[2017-03-22] MEDS ORDERED: NORCO1 TA2 PO (16:24)
== END 2017-03-22 18:04 | disposition home health service (06) | DRG 487 ==
LOC: 1SO 15:58
PROVIDERS: Specialist
PROC: 0J9P0ZX Drainage of Left Lower Leg Subcutaneous Tissue and Fascia, Open Approach, Diagnostic (ICD-10-PCS; 2017-03-19)
PROC: 0SUW09Z Supplement Left Knee Joint, Tibial Surface with Liner, Open Approach (ICD-10-PCS; 2017-03-19)
PROC: 0SPD09Z Removal of Liner from Left Knee Joint, Open Approach (ICD-10-PCS; principal; 2017-03-19 16:45)
PROC: 02HV33Z Insertion of Infusion Device into Superior Vena Cava, Percutaneous Approach (ICD-10-PCS; 2017-03-21)
PROC: 4A02X4A Measurement of Cardiac Electrical Activity, Guidance, External Approach (ICD-10-PCS; 2017-03-21)
DX: T84.59XA Infection and inflammatory reaction due to other internal joint prosthesis, initial encounter (principal); K74.60 Unspecified cirrhosis of liver; Z68.31 Body mass index [BMI] 31.0-31.9, adult; K21.9 Gastro-esophageal reflux disease without esophagitis; B19.20 Unspecified viral hepatitis C without hepatic coma; I73.9 Peripheral vascular disease, unspecified; E66.9 Obesity, unspecified; Z79.891 Long term (current) use of opiate analgesic; Z79.899 Other long term (current) drug therapy; Z85.3 Personal history of malignant neoplasm of breast; Z88.1 Allergy status to other antibiotic agents
CPT/HCPCS: 36569; 71010; 80048; 80053; 85014; 85018; 85025; 85610; 87015; 87070; 87075; 87102; 87116; 87205; 88300; 88304; 93005; 97110-GP; 97116-GP; 97161-GP; 97165-GO; A9270-GY; C1713; C1751; C1776; G8978-CK-GP; G8979-CI-GP; G8987-CJ-GO; G8988-CJ-GO; G8989-CJ-GO; J0690; J1170; J1885; J2185; J2250; J2270; J2405; J2795; J3010; J3260; J3370